=== PATIENT | male | born 1935 | race Caucasian/White ===

== ENCOUNTER → 2021-04-20 10:45 | Outpatient (BNVA) | payer OTHER, SELFPAY | PROVIDERS: Visit Provider Nurse Practitioner | DX: G31.84 Mild cognitive impairment of uncertain or unknown etiology (principal); F17.210 Nicotine dependence, cigarettes, uncomplicated | CPT/HCPCS: 96116; 99204 ==

== ENCOUNTER 2021-05-20 12:52 | Outpatient (CLI) | payer OTHER, SELFPAY ==
--- NOTE | 2021-05-20 13:01 | MR_ITS ---
WS: [id number] MRI HEAD WITHOUT CONTRAST TECHNIQUE: Sagittal T1, T2 axial, T2 axial FLAIR, axial and coronal T1 images, axial susceptibility w eighted imaging, axial diffusion weighted images, and coronal T2 images were obtained. CLINICAL INFORMATION: G31.84 - Mild cognitive impairment, so stated COMPARISON: None. FINDINGS: No evidence of restricted diffusion to suggest acute ischemia. Ventricular system and basal cisterns are patent. Mild small vessel changes. Moderate parenchymal volume loss. 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 A few chronic lacunar infarcts in the periventricular white matter. Nicole l vascular flow voids at the skull base. No extra axial fluid collections. Paranasal sinuses and mast oid air cells are well aerated. No hemosiderin on the susceptibly weighted images. Moderate symmetric atrophy temporal lobes and isaiah ocampal formations. Normal optic chiasm and pituitary infundibulum. Normal cavernous sinuses and Meck el's cave. MR/MR head wo con* [id number] IMPRESSION: 1. No evidence of restricted diffusion to suggest acute ischemia. 2. Mild small vessel changes with moderate parenchymal volume loss. 3. A few chronic lacunar infarcts in the periventricular white matter. 4. 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 5. 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 6. Normal optic chiasm and pituitary infundibulum. 7. No hemosiderin on susceptibly weighted images.
== END 2021-05-20 12:53 | disposition home or self-care (01) ==
LOC: RADSHAW 12:52
PROVIDERS: Visit Provider Nurse Practitioner
DX: G31.9 Degenerative disease of nervous system, unspecified (principal); I63.9 Cerebral infarction, unspecified; I63.81 Other cerebral infarction due to occlusion or stenosis of small artery
CPT/HCPCS: 70551